=== PATIENT | female | born 1980 | race American Indian/Alaskan Native ===

== ENCOUNTER 2018-11-10 05:37 | Day surgery (SDC) | payer OTHER ==
[~2018-11-10 05:37] MED LIST: DIPRIVAN 10 MG/ML IV ONE; LACTATED RINGERS 1,000 ML IV SCH; SUBLIMAZE ONE
[2018-11-10] MEDS ORDERED: NEURONTIN PO NR (06:00)
[2018-11-10] MEDS ORDERED: VERSED IV NR (06:00)
[2018-11-10] MEDS ORDERED: NACL BACTERIOSTATIC INFILTRATI ONE (06:28)
[2018-11-10] MEDS ORDERED: MARCAINE 0.25% INFILTRATI ONE ×2 (07:17→08:20)
--- NOTE | 2018-11-10 07:18 | Anesthesia Consultation ---
Anesthesia Consult and Med Hx Date of service: 11/10/18 - Airway Anesthetic Teeth Evaluation: Good ROM Head & Neck: Adequate Mental/Hyoid Distance: Adequate Mallampati Class: Class II Intubation Access Assessment: Probably Good - Pulmonary Exam CTA: Yes - Cardiac Exam Cardiac Exam: RRR - Pre-Operative Health Status ASA Pre-Surgery Classification: ASA2 Proposed Anesthetic Plan: General - Pulmonary Hx Smoking: No Hx Respiratory Symptoms: No - Cardiovascular System Hx Hypertension: Yes (x 2mos) Hx Cardia Arrhythmia: No - Central Nervous System Hx Neuromuscular Disorder: No Hx Psychiatric Problems: No - Gastrointestinal Hx Gastroesophageal Reflux Disease: No - Endocrine Hx Renal Disease: No Hx Liver Disease: No Hx Insulin Dependent Diabetes: No Hx Non-Insulin Dependent Diabetes: No Hx Thyroid Disease: No - Hematic Hx Anemia: No - Other Systems Hx Alcohol Use: No Hx Cancer: No Hx Obesity: No - Additional Comments Anesthesia Medical History Comments: No GAC, No FHAC
--- NOTE | 2018-11-10 07:19 | Anesthesia Day of Surgery ---
Anesthesia Day of Surgery - Day of Surgery Patient Examined: Yes Patient H&P Reviewed: Yes Patient is NPO: Yes Beta Blockers: No (n/a) Cardiac Clearance: No (n/a) Pulmonary Clearance: No (n/a)
--- NOTE | 2018-11-10 07:25 | Short Stay Summary ---
Short Stay Documentation Date of service: 11/10/18 Narrative H&P: Patient is a 38 year old who presents for elective sterilization on today. - History H&P: obtained from office Past Medical History: diabetes Past Surgical History: Other (gastric bypass) Social history: - Allergies and Medications Current Medications: Allergies NSAIDS (Non-Steroidal Anti-Inflamma Allergy (Verified 11/09/18 11:32) Unknown Home Medications Medication Instructions Recorded Confirmed Last Taken Type Telmisartan [Micardis] 20 mg PO DAILY 11/09/18 11/09/18 Unknown History traMADol [Ultram] 50 mg PO Q6HR PRN 11/09/18 11/09/18 Unknown History traZODone [Desyrel] 50 mg PO QHS 11/09/18 11/09/18 Unknown History Active Medications Gabapentin (Neurontin) 300 mg PO PREOP NR Stop: 11/10/18 23:59 Last Admin: 11/10/18 06:35 Dose: 300 mg Documented by: Lactated Ringer's (Lactated Ringers) 1,000 mls @ 100 mls/hr IV DIRECT [place] Last Admin: 11/10/18 06:45 Dose: 100 mls/hr Documented by: Cefazolin Sodium (Ancef/Sterile Water 2 Gm/20 Ml) 2 gm in 20 mls @ 80 mls/hr IV PREOP NR; Protocol Midazolam HCl (Versed) 2 mg IV PREOP NR Stop: 11/10/18 23:59 Last Admin: 11/10/18 06:59 Dose: 2 mg Documented by: - Physical exam General appearance: no acute distress HEENT: Atraumatic Lungs: Clear to auscultation, Normal air movement Breasts: deferred Heart: Regular rate, Normal S1, Normal S2 Gastrointestinal: normal, normoactive bowel sounds Female Genitourinary: normal Rectal Exam: deferred - Brief post op/procedure progress note Date of procedure: 11/10/18 Pre-op diagnosis: Undesired fertility Post-op diagnosis: same Procedure: Bilateral laparoscopic Salpingectomy Anesthesia: GETA Findings: Normal appearing uterus, tubes and ovaries Surgeon: BENY SMITH Estimated blood loss: minimal Pathology: list (right and left fallopian tubes) Specimen disposition: to lab Condition: stable - Hospital course Hospital course: unremarkable - Disposition Condition at discharge: Good Disposition: [id number] TO HOME OR SELFCARE Short Stay Discharge Plan Activity: advance as tolerated Weight Bearing Status: Weight Bear as Tolerated Diet: regular Follow up with: BENY SMITH MD [Staff Physician] - 14 Days Prescriptions: traMADol [Ultram 50 MG tab] 2 tab PO Q6HR PRN #60 tablet PRN Reason: Pain
[2018-11-10] MEDS ORDERED: ZOFRAN ONE (07:59)
[2018-11-10] MEDS ORDERED: ROBINUL ONE ×2 (08:00)
[2018-11-10] MEDS ORDERED: ANCEF/STERILE WATER 2 GM/20 ML 2 GM/20 ML SYRINGE IV NR (08:00)
[2018-11-10] MEDS ORDERED: DECADRON ONE (08:00)
[2018-11-10] MEDS ORDERED: BLOXIVERZ ONE (08:00)
[2018-11-10] MEDS ORDERED: SUBLIMAZE ONE (08:06)
[2018-11-10] MEDS ORDERED: NACL 0.9% IR ONE (08:20)
[2018-11-10] MEDS ORDERED: DILAUDID IV PRN (08:44)
[2018-11-10] MEDS ORDERED: ULTRAM PO PRN (10:04)
--- NOTE | 2018-11-10 10:06 | Operative Report ---
Operative Report Operative Report: Preoperative diagnosis: Undesired fertility Postoperative diagnosis: Same Procedure: Bilateral laparoscopic salpingectomy Surgeon: Ronda Connelly Anesthesia: General EBL: Minimal IV fluids: 900 mL Urine output: 75 mL Findings: Normal uterus with a serosal fibroid on the fundus, the left tube was missing the fimbriated end, the right tube and both ovaries were normal Specimens: Portion of right and left fallopian tube Complications: None The patient was properly identified as herself. She was then taken to the OR with IV running and in place. She was given general anesthesia without difficulty. She was placed in a dorsal lithotomy position. She was then prepped and draped in normal sterile fashion. Attention was turned to the patient's vagina. Her bladder was drained of clear urine with a red rubber catheter. The speculum was then placed the patient's vagina. The cervix was visualized and grasped with tenaculum. The acorn cannula was then inserted. The surgeon's gloves were changed and attention turned to the patient's abdomen. A small incision was made in the patient's umbilicus incision a 5 mm trocar was placed. The laparoscope confirmed intra-abdominal placement. The abdomen was insufflated with CO2 gas to approximately 25 mmHg. Both fallopian tubes were identified. With direct visualization a second trocar was placed through an incision in the left lower quadrant. Both tubes were found and followed out to the fimbriated ends. Each tube was cauterized at the portion nearest the cornua, then cauterized across the broad ligament until the tube was completely detached. There was excellent hemostasis at the end of this portion of the procedure. Eac h tube was handed off for pathology. At this point the abdomen was deflated. All instruments were then removed from the abdomen. The incisions were then closed with 4-0 Monocryl. The incisions were also injected with quarter percent Marcaine. The patient tolerated the procedure well she was then awakened and taken recovery in stable condition. Sponge needle and instrument counts were correct 2.
[2018-11-10 10:44] VITALS: BP 137/90
--- NOTE | 2018-11-10 11:10 | Post Anesthesia Evaluation ---
- Post Anesthesia Evaluation Patient Participated: Yes Airway Patent: Yes Stable Respiratory Function: Yes Nausea/Vomiting: No Temp > 96.8F: Yes Pain Manageable: Yes Adequeate Hydration: Yes Anesthesia Complications: No
== END 2018-11-10 10:50 | disposition home or self-care (01) ==
LOC: OR 05:37
PROVIDERS: ATTEND Obstetrics & Gynecology
DX: Z30.2 Encounter for sterilization (principal); G43.909 Migraine, unspecified, not intractable, without status migrainosus; I10 Essential (primary) hypertension; N83.8 Other noninflammatory disorders of ovary, fallopian tube and broad ligament; Z88.6 Allergy status to analgesic agent; Z79.899 Other long term (current) drug therapy; Z98.890 Other specified postprocedural states
CPT/HCPCS: 58670; 81025; 88302; J1100; J1170; J2250; J2405; J2704; J2710; J3010; J7120